=== PATIENT | female | born 1985 | race Hispanic/Latino ===

== ENCOUNTER 2017-06-15 19:05 | Emergency (ER) | payer OTHER ==
[2017-06-15 19:13] VITALS: BP 154/91; PULSE 87; RESP 16; TEMP 98; O2SAT 100
[2017-06-15 20:23] LABS: BASO % 0.2 % (0.0-2.0); EOS % 0.3 % (0.0-4.0); HEMOGLOBIN 13.8 g/dL (12.0-16.0); LYMPH # 1.5 K/uL (1.0-4.3); LYMPH % 11.6 % (20.0-40.0); MEAN CELL VOLUME 88.4 fl (81.0-99.0); MEAN CORPUSCULAR HGB CONC 33.9 g/dL (33.0-37.0); MONO # 0.7 K/uL (0.0-0.8); MONO % 5.2 % (0.0-10.0); NEUT # 10.5 K/uL (1.8-7.0); NEUT % 82.7 % (50.0-75.0); RBC 4.61 Mil/uL (3.80-5.20); RED CELL DISTRIBUTION WIDTH 13.7 % (11.5-14.5); WHITE BLOOD COUNT 12.7 K/uL (4.8-10.8)
[2017-06-15 20:33] LABS: BLOOD UREA NITROGEN 14 mg/dl (7-17); GFR AFRICAN-AMERICAN > 60; GFR NON-AFRICAN AMERICAN > 60
[2017-06-15 20:37] LABS: ACETAMINOPHEN < 10.0 ug/ml (10.0-30.0); SALICYLATE < 1.0 mg/dl
--- NOTE | 2017-06-15 21:38 | ED PDOC ---
HPI: Psych/Substance Abuse Time Seen by Provider: 06/15/17 19:20 Chief Complaint (Nursing): Substance Abuse Chief Complaint (Provider): Substance Abuse History Per: Patient History/Exam Limitations: no limitations Current Symptoms Are (Timing): Better Additional Complaint(s): 31 year old female presents to the emergency department via EMS after she was found by her coworker on the floor after overdose of heroin at work prior to arrival. Patient snorted and fell on the floor. She used to be on suboxone but has been off it for 6 months. Patient woke up before EMS arrived so Narcan was not administered in the field. Patient is awake and alert. Denies depression, anxiety, suicidal/homicidal ideation, fever, or chills. Past Medical History Reviewed: Historical Data, Nursing Documentation, Vital Signs Vital Signs: Last Vital Signs Temp 98.0 F 06/15/17 19:10 Pulse 87 06/15/17 19:10 Resp 16 06/15/17 19:10 BP 154/91 H 06/15/17 19:10 Pulse Ox 100 06/15/17 19:10 - Medical History PMH: No Chronic Diseases - Surgical History Surgical History: No Surg Hx - Family History Family History: States: Unknown Family Hx - Social History Current smoker - smoking cessation education provided: No Alcohol: Social Drugs: Other (Heroin ) - Allergies Allergies/Adverse Reactions: Allergies Allergy/AdvReac Type Severity Reaction Status Date / Time No Known Allergies Allergy Verified 06/15/17 19:09 Review of Systems ROS Statement: Except As Marked, All Systems Reviewed And Found Negative (As per HPI, otherwise negative) Constitutional: Positive for: Other (Overdose of substance abuse). Negative for : Fever, Chills Psych: Negative for: Anxiety, Depression, Suicidal ideation (homicidal ideation) Physical Exam - Reviewed Nursing Documentation Reviewed: Yes Vital Signs Reviewed: Yes - Physical Exam Appears: Positive for: Non-toxic, No Acute Distress Head Exam: Positive for: ATRAUMATIC, NORMAL INSPECTION, NORMOCEPHALIC Skin: Positive for: Normal Color, Warm, Dry ENT: Positive for: Normal ENT Inspection. Negative for: Pharyngeal Erythema Neck: Positive for: Normal, Supple Cardiovascular/Chest: Positive for: Regular Rate, Rhythm. Negative for: Murmur Respiratory: Positive for: Normal Breath Sounds. Negative for: Accessory Muscle Use, Respiratory Distress Gastrointestinal/Abdominal: Positive for: Normal Exam, Soft. Negative for: Tenderness Extremity: Positive for: Normal ROM. Negative for: Pedal Edema Neurologic/Psych: Positive for: Alert, Oriented (x3) - Laboratory Results Result Diagrams: 06/15/17 20:10 06/15/17 20:10 - ECG O2 Sat by Pulse Oximetry: 100 (RA) Pulse Ox Interpretation: Normal Medical Decision Making Medical Decision Making: Time: 1950 Initial impression: Substance Abuse Initial plan: Acetaminophen Alcohol Serum BMP Drug Screen, Urine Salicylate CBC w. diff Urinalysis Reevaluation --Pending crisis evaluation Time: 2237 --Patient refused to give urine. Time: 2241 --Patient is stable for discharge as per crisis. family at bedside. Clinical impression: Substance abuse Scribe Attestation: Documented by Susan Brandon, acting as a scribe for Barbara Mojica MD. Provider Scribe Attestation: All medical record entries made by the Scribe were at my direction and personally dictated by me. I have reviewed the chart and agree that the record accurately reflects my personal performance of the history, physical exam, medical decision making, and the department course for this patient. I have also personally directed, reviewed, and agree with the discharge instructions and disposition. Disposition - Clinical Impression Clinical Impression: Substance abuse - Patient ED Disposition Is Patient to be Admitted: No Counseled Patient/Family Regarding: Diagnosis - Disposition Disposition: Routine/Home Disposition Time: 22:00 Condition: IMPROVED Additional Instructions: follow up with outpatient detox return to the ED with any worsening or concerning symtpoms Instructions: Polysubstance Abuse (ED) Forms: [employer] ([place])
== END 2017-06-15 21:20 | disposition home or self-care (01) ==
LOC: H.ER 19:05
DX: F11.10 Opioid abuse, uncomplicated (principal)